=== PATIENT | male | born 1955 | race Hispanic/Latino ===

== ENCOUNTER 2020-04-17 17:25 | Inpatient (IN) | payer BC ==
[~2020-04-17] VITALS: Ht 175.3 cm; Wt 102.1 kg
[~2020-04-17 17:25] MED LIST: ATOR-2 PO; DULA1.5P SQ; LINA5TAB PO; LISI40TA4 PO; METF-527 PO; OMEP40CA13 PO
[2020-04-17] MEDS ORDERED: LACTULOSE 20 GM/30 ML UDCUP PO PRN (19:00)
[2020-04-17] MEDS ORDERED: COMPOUND IV REFRIGERATED 1 EACH IVSOLN MISC PRN (19:00)
[2020-04-17] MEDS ORDERED: ACETAMINOPHEN 325 MG TAB PO PRN ×2 (19:00)
[2020-04-17] MEDS ORDERED: VANCOMYCIN 1GM+NS 250ML 250 ML IV SCH (19:00)
[2020-04-17] MEDS ORDERED: ONDANSETRON HCL 4 MG/2 ML VIAL IV PRN (19:00)
[2020-04-17] MEDS ORDERED: MORPHINE SULFATE 2 MG/ML 1ML SYG IV PRN (19:00)
[2020-04-17] MEDS ORDERED: HYDRALAZINE HCL 20 MG/ML VIAL IV PRN (19:00)
[2020-04-17] MEDS ORDERED: VANCOMYCIN PROTOCOL PER PHARMACY IV SCH (19:00)
[2020-04-17 19:02] LABS: BASOPHILS % (AUTO) 0.5 % (0.0-5.0); EOSINOPHILS % (AUTO) 3.3 % (0.0-8.0); LYMPHOCYTES % (AUTO) 18.7 % (21.0-51.0); MEAN CORPUSCULAR HEMOGLOBIN 29.2 pg (27.0-33.0); MEAN CORPUSCULAR HGB CONC 33.3 g/dL (32.0-36.0); MEAN CORPUSCULAR VOLUME 87.9 fL (79-99); MONOCYTES % (AUTO) 8.9 % (3.0-13.0); NEUTROPHILS % (AUTO) 68.1 % (40.0-77.0); PLATELET COUNT (AUTO) 226 K/uL (130-400); RED BLOOD CELL COUNT(AUTO) 4.55 MIL/uL (4.50-6.20); RED CELL DISTRIBUTION WIDTH 13.2 % (11.0-15.5); WHITE BLOOD COUNT (AUTO) 9.4 K/uL (4.8-10.8)
[2020-04-17 19:04] LABS: CREATININE 1.8 mg/dL (0.5-1.5); POTASSIUM 4.2 mmol/L (3.5-5.1)
[2020-04-17 19:09] LABS: ALBUMIN 3.9 g/dL (3.5-5.0); BILIRUBIN,TOTAL 0.4 mg/dL (0.2-1.0); TOTAL PROTEIN, SERUM 7.8 g/dL (6.0-8.3)
[2020-04-17] MEDS ORDERED: VANCOMYCIN 2 GM in SODIUM CHLORIDE 0.9% 500ML 500 ML IV ONE (19:30)
[2020-04-17] MEDS ORDERED: VANCOMYCIN 1GM+NS 250ML 250 ML IV ONE (19:49)
[2020-04-17] MEDS ORDERED: FAMOTIDINE/PF 20 MG/2 ML VIAL IV ONE (19:51)
[2020-04-17 20:13] LABS: ERYTHROCYTE SEDIMENTATION RATE 18 MM/HR (0-20)
[2020-04-17] MEDS: FAMOTIDINE/PF 20 MG/2 ML VIAL IV SCH (21:00)
[2020-04-17 23:00] VITALS: BP 153/71
--- NOTE | 2020-04-17 23:00 | NUR ---
PATIENT RECEIVED FROM Denzel, REPORT FROM POONAM RAYA. PT SENT TO HOSPITAL FROM DR. LANCASTER'S OFFICE WITH DX OF LEFT 2NF TOE OSTEOMYELITIS. PT ORIENTED TO ROOM AND ENVIRONMENT, POC DISCUSSED WITH PATIENT. PT IS TO BE NPO, NO ORDERS FOR PROCEDURES AT THIS TIME. TELE WITH SR 67 NO C/O PAIN VOICED. INSTRUCTED TO CALL FOR ASSISTANCE IF NEEDED. CALL ORNELAS PLACED WITHIN REACH, WILL CONT TO MONITOR CLOSELY.
[2020-04-18 03:46] VITALS: BP 127/66
[2020-04-18] MEDS: SODIUM CHLORIDE 0.9% 1000ML 1,000 ML IV SCH ×2 (04:15→14:48)
[2020-04-18] MEDS ORDERED: VANCOMYCIN 1GM+NS 250ML 250 ML IV SCH (06:00)
--- NOTE | 2020-04-18 06:36 | NUR ---
MD ROUNDS DR. LANCASTER IN TO SEE PATIENT. MD CHANGED DRESSING TO LEFT 2 ND TOE WOUND. MD SPOKE WITH PATIENT, INFORMED HIM OF PLAN FOR SURGERY TOMORROW.
[2020-04-18 07:30] VITALS: BP 144/72
[2020-04-18 11:00] VITALS: BP 149/70
[2020-04-18] MEDS: VANCOMYCIN 1GM+NS 250ML 250 ML IV SCH ×2 (11:15→21:55)
[2020-04-18] MEDS: FAMOTIDINE/PF 20 MG/2 ML VIAL IV SCH ×2 (11:15→21:54)
--- NOTE | 2020-04-18 12:22 | NUR ---
DCP CM met with pt discussed dc plans. Pt is independent prior to admission, lives at home with spouse. Pt verbalized he has small step in front of house. Pt has a rollator walker, cane, crutches, shower chair. Denies any equipments/services. Feels safe to go back home, still drives, spouse able to assist with transportation and needs as necessary. Pt prefers to go home, but agreeable for short term placemenent verbalized he's ok w/[facility] only if necessary, will sign consent once MD makes recommendations. DC plan to home vs HH/SNF. CM to cont to follow up. Addendum: 04/18/20 at 1226 by GANESH BREEN LVN CM Amended: Links added.
[2020-04-18 16:00] VITALS: BP 147/76
[2020-04-18] MEDS ORDERED: INS7030 SQ (16:30)
[2020-04-18] MEDS ORDERED: NITR0.4T50 SL (16:30)
[2020-04-18] MEDS ORDERED: CLOP75TA32 PO (16:30)
[2020-04-18] MEDS ORDERED: LORA10TA7 PO (16:30)
[2020-04-18] MEDS ORDERED: AMLO2.5T4 PO (16:30)
[2020-04-18] MEDS ORDERED: ASPI-1197 PO (16:30)
--- NOTE | 2020-04-18 18:30 | NUR ---
Covid PCR swab done and given to lab. Dressing change number 1 done and wound cultures were taken; wound kit was and required second dressing change and wound cultures; second dressing change done and wound cultures taken and given to lab.
[2020-04-18 20:00] VITALS: BP 154/75
[2020-04-19] VITALS (22 sets, daily range): BP systolic 98–168; BP diastolic 60–83
[2020-04-19] MEDS: SODIUM CHLORIDE 0.9% 1000ML 1,000 ML IV SCH ×3 (01:07→21:06)
[2020-04-19 06:43] LABS: BASOPHILS % (AUTO) 0.5 % (0.0-5.0); EOSINOPHILS % (AUTO) 4.4 % (0.0-8.0); HEMATOCRIT 36.1 % (42-54); LYMPHOCYTES % (AUTO) 17.7 % (21.0-51.0); MEAN CORPUSCULAR HEMOGLOBIN 29.2 pg (27.0-33.0); MEAN CORPUSCULAR HGB CONC 33.5 g/dL (32.0-36.0); MONOCYTES % (AUTO) 9.5 % (3.0-13.0); NEUTROPHILS % (AUTO) 67.5 % (40.0-77.0); PLATELET COUNT (AUTO) 187 K/uL (130-400); RED BLOOD CELL COUNT(AUTO) 4.15 MIL/uL (4.50-6.20); RED CELL DISTRIBUTION WIDTH 13.1 % (11.0-15.5); WHITE BLOOD COUNT (AUTO) 8.2 K/uL (4.8-10.8)
[2020-04-19 06:55] LABS: CREATININE 1.5 mg/dL (0.5-1.5); POTASSIUM 4.3 mmol/L (3.5-5.1)
[2020-04-19] MEDS ORDERED: BUPIVACAINE/PF 0.5% 30ML VIAL ONE (07:02)
[2020-04-19] MEDS ORDERED: LIDOCAINE HCL 1% 20 ML VIAL ONE (07:02)
[2020-04-19] MEDS ORDERED: MIDAZOLAM HCL 1 MG/ML 2ML VIAL ONE (07:06)
[2020-04-19] MEDS ORDERED: FENTANYL CITRATE PF 50 MCG/1 ML 2ML VIAL ONE (07:06)
[2020-04-19] MEDS ORDERED: PROPOFOL 1000 MG/100 ML 100 ML IV ONE (07:07)
[2020-04-19] MEDS ORDERED: LIDOCAINE PF 2% 5ML ABBOJECT ONE (07:17)
[2020-04-19] MEDS: VANCOMYCIN 1GM+NS 250ML 250 ML IV SCH ×2 (08:58→21:50)
[2020-04-19] MEDS ORDERED: NITROGLYCERIN 0.4 MG SL TAB SL PRN (09:15)
[2020-04-19] MEDS ORDERED: HYDROMORPHONE 1 MG/1 ML AMP IVP PRN (10:15)
[2020-04-19] MEDS: LISINOPRIL 40 MG TABLET PO SCH (13:04)
[2020-04-19] MEDS: ASPIRIN 81MG TAB.CHEW PO SCH (13:04)
[2020-04-19] MEDS: FAMOTIDINE/PF 20 MG/2 ML VIAL IV SCH ×2 (13:05→21:05)
[2020-04-19] MEDS: INSULIN HUMULIN R 100 UNIT/ML 3ML SQ SCH ×3 (13:11→21:00)
[2020-04-19] MEDS: LORATADINE 10 MG TABLET PO SCH (21:05)
[2020-04-19] MEDS: ATORVASTATIN CALCIUM 40 MG TABLET PO SCH (21:05)
[2020-04-20 04:29] VITALS: BP 136/72
[2020-04-20 05:33] LABS: BASOPHILS % (AUTO) 0.3 % (0.0-5.0); EOSINOPHILS % (AUTO) 3.4 % (0.0-8.0); HEMATOCRIT 34.8 % (42-54); LYMPHOCYTES % (AUTO) 15.5 % (21.0-51.0); MEAN CORPUSCULAR HEMOGLOBIN 29.2 pg (27.0-33.0); MEAN CORPUSCULAR HGB CONC 33.3 g/dL (32.0-36.0); MEAN CORPUSCULAR VOLUME 87.7 fL (79-99); MONOCYTES % (AUTO) 9.6 % (3.0-13.0); NEUTROPHILS % (AUTO) 70.8 % (40.0-77.0); PLATELET COUNT (AUTO) 197 K/uL (130-400); RED BLOOD CELL COUNT(AUTO) 3.97 MIL/uL (4.50-6.20); RED CELL DISTRIBUTION WIDTH 13.2 % (11.0-15.5); WHITE BLOOD COUNT (AUTO) 9.7 K/uL (4.8-10.8)
[2020-04-20 05:49] LABS: CREATININE 1.5 mg/dL (0.5-1.5); POTASSIUM 4.4 mmol/L (3.5-5.1)
[2020-04-20] MEDS: INSULIN HUMULIN R 100 UNIT/ML 3ML SQ SCH ×4 (06:45→21:18)
[2020-04-20] MEDS: SODIUM CHLORIDE 0.9% 1000ML 1,000 ML IV SCH (08:00)
[2020-04-20 08:39] VITALS: BP 149/79
[2020-04-20] MEDS: VANCOMYCIN 1GM+NS 250ML 250 ML IV SCH ×2 (09:23→21:10)
[2020-04-20] MEDS: FAMOTIDINE/PF 20 MG/2 ML VIAL IV SCH ×2 (09:23→21:10)
[2020-04-20] MEDS: AMLODIPINE BESYLATE 2.5 MG TAB PO SCH (09:24)
[2020-04-20] MEDS: CLOPIDOGREL BISULFATE 75 MG TAB PO SCH (09:24)
[2020-04-20] MEDS: ASPIRIN 81MG TAB.CHEW PO SCH (09:24)
[2020-04-20] MEDS: LISINOPRIL 40 MG TABLET PO SCH (09:25)
[2020-04-20 12:29] VITALS: BP 139/68
[2020-04-20] MEDS: SODIUM CHLORIDE 0.9% 10 ML VIAL IV SCH ×2 (15:45→23:45)
[2020-04-20 16:47] VITALS: BP 147/71
[2020-04-20 20:00] VITALS: BP 151/79
[2020-04-20] MEDS: LORATADINE 10 MG TABLET PO SCH (21:10)
[2020-04-20] MEDS: ATORVASTATIN CALCIUM 40 MG TABLET PO SCH (21:10)
[2020-04-20 23:44] VITALS: BP 136/59
--- NOTE | 2020-04-21 02:38 | NUR ---
PAIN Pt medicated with Tylenol for c/o of mild pain to left foot.
[2020-04-21 03:45] LABS: BASOPHILS % (AUTO) 0.2 % (0.0-5.0); EOSINOPHILS % (AUTO) 2.8 % (0.0-8.0); HEMATOCRIT 35.2 % (42-54); LYMPHOCYTES % (AUTO) 13.8 % (21.0-51.0); MEAN CORPUSCULAR HEMOGLOBIN 29.5 pg (27.0-33.0); MEAN CORPUSCULAR HGB CONC 33.8 g/dL (32.0-36.0); MEAN CORPUSCULAR VOLUME 87.1 fL (79-99); NEUTROPHILS % (AUTO) 71.7 % (40.0-77.0); PLATELET COUNT (AUTO) 188 K/uL (130-400); RED BLOOD CELL COUNT(AUTO) 4.04 MIL/uL (4.50-6.20); RED CELL DISTRIBUTION WIDTH 13.2 % (11.0-15.5); WHITE BLOOD COUNT (AUTO) 10.2 K/uL (4.8-10.8)
[2020-04-21 03:48] VITALS: BP 138/62
[2020-04-21 04:05] LABS: BILIRUBIN,TOTAL 0.5 mg/dL (0.2-1.0); CREATININE 1.6 mg/dL (0.5-1.5); POTASSIUM 3.8 mmol/L (3.5-5.1); TOTAL PROTEIN, SERUM 6.4 g/dL (6.0-8.3)
[2020-04-21] MEDS: INSULIN HUMULIN R 100 UNIT/ML 3ML SQ SCH ×3 (05:35→16:45)
[2020-04-21] MEDS: SODIUM CHLORIDE 0.9% 10 ML VIAL IV SCH ×2 (07:33→15:45)
[2020-04-21 07:56] VITALS: BP 128/65
[2020-04-21] MEDS: FAMOTIDINE/PF 20 MG/2 ML VIAL IV SCH (09:07)
[2020-04-21] MEDS: VANCOMYCIN 1GM+NS 250ML 250 ML IV SCH (09:07)
[2020-04-21] MEDS: AMLODIPINE BESYLATE 2.5 MG TAB PO SCH (09:08)
[2020-04-21] MEDS: CLOPIDOGREL BISULFATE 75 MG TAB PO SCH (09:08)
[2020-04-21] MEDS: ASPIRIN 81MG TAB.CHEW PO SCH (09:08)
[2020-04-21] MEDS: LISINOPRIL 40 MG TABLET PO SCH (09:09)
[2020-04-21 11:15] VITALS: BP 142/75
[2020-04-21 16:00] VITALS: BP 147/79
--- NOTE | 2020-04-21 18:45 | NUR ---
DISCHARGE DISCHARGE TEACHING REGARDING RX (LEVAQUIN), PENDING F/U APPOINTMENTS NEEDED TO BE SCHEDULED WITH DR. LANCASTER AND DR. NARANJO, AND HOME CARE. REINFORCED TO CONTINUE PHYSICAL THERAPIST TEACHING REGARDING HOW TO AMBULATE HEEL-WALKER WITH SURGICAL SHOE TO LEFT FOOT WITH WALKER. PATIENT STATES HE HAS A WALKER AT HOME. PATIENTS , HERNESTO MUNOZ, CURRENTLY AT BEDSIDE. PROVIDED TEACHING TO PATIENTS REGARDING LEFT FOOT SECOND TOE INCISION DRESSING CHANGES PER DR. LANCASTER ORDER (BETADINE CASE, 4X4 GAUZE, AND KERLIX). PATIENTS STATED SHE HAS DONE THE SAME TYPE WOUND DRESSING CHANGES BEFORE AND FELT COMFORTABLE PERFORMING DRESSING CHANGES AT HOME. PATIENT AND VERBALIZED UNDERSTANDING OF DISCHARGE TEACHING. PROVIDED WOUND DRESSING SUPPLIES (BETADINE, 4X4 GAUZE, AND KERLIX ROLLS) TO PATIENT AT TIME OF DISCHARGE. REMOVED 20G IV FROM RIGHT HAND, CATHETER TIP INTACT.
== END 2020-04-21 18:58 | disposition home or self-care (01) | DRG 617 ==
LOC: EDH 17:25 → EDHIP 17:26 → 3AH 22:07
PROVIDERS: ADMIT Internal Medicine; ATTEND Internal Medicine
PROC: 0Y6N0ZB Detachment at Left Foot, Partial 2nd Ray, Open Approach (ICD-10-PCS; principal; 2020-04-19 07:54)
DX: E11.69 Type 2 diabetes mellitus with other specified complication (principal); M86.8X7 Other osteomyelitis, ankle and foot; L03.116 Cellulitis of left lower limb; L02.612 Cutaneous abscess of left foot; E11.621 Type 2 diabetes mellitus with foot ulcer; N17.9 Acute kidney failure, unspecified; I25.10 Atherosclerotic heart disease of native coronary artery without angina pectoris; Z20.828 Contact with and (suspected) exposure to other viral communicable diseases; I10 Essential (primary) hypertension; E11.51 Type 2 diabetes mellitus with diabetic peripheral angiopathy without gangrene; L97.529 Non-pressure chronic ulcer of other part of left foot with unspecified severity; B96.5 Pseudomonas (aeruginosa) (mallei) (pseudomallei) as the cause of diseases classified elsewhere; E78.5 Hyperlipidemia, unspecified; E66.9 Obesity, unspecified; Z68.33 Body mass index [BMI] 33.0-33.9, adult; Z89.421 Acquired absence of other right toe(s); Z95.5 Presence of coronary angioplasty implant and graft; Z89.412 Acquired absence of left great toe; Z83.3 Family history of diabetes mellitus; Z82.5 Family history of asthma and other chronic lower respiratory diseases; Z82.0 Family history of epilepsy and other diseases of the nervous system; Z82.49 Family history of ischemic heart disease and other diseases of the circulatory system
CPT/HCPCS: 36415; 73630; 73718; 80048; 80053; 80202; 82948; 85025; 85651; 87070; 87076; 87077; 87186; 87205; 87426; 93925; 93970; 97039; G0378; J1815; J2001; J2250; J2704; J3010; J3370; J3490; J7030; J7040; U0003

== ENCOUNTER 2020-05-28 14:23 | Inpatient (IN) | payer BC ==
[~2020-05-28] VITALS: Ht 175.3 cm; Wt 102.6 kg
[~2020-05-28 14:23] MED LIST changes: +AMLO2.5T4 PO; +ASPI-1197 PO; +CLOP75TA32 PO; -DULA1.5P SQ; +INS7030 SQ; +LORA10TA7 PO; +NITR0.4T50 SL
[2020-05-28] MEDS ORDERED: VANCOMYCIN 1GM+NS 250ML 250 ML IV ONE (17:44)
[2020-05-28] MEDS ORDERED: MORPHINE SULFATE 2 MG/ML 1ML SYG IVP PRN (17:45)
[2020-05-28] MEDS ORDERED: VANCOMYCIN PROTOCOL PER PHARMACY IV SCH (17:45)
[2020-05-28] MEDS ORDERED: HYDROMORPHONE 1 MG/1 ML AMP IVP PRN (17:45)
[2020-05-28] MEDS ORDERED: ACETAMINOPHEN 325 MG TAB PO PRN (17:45)
[2020-05-28] MEDS ORDERED: ONDANSETRON HCL 4 MG/2 ML VIAL IVP PRN (17:45)
[2020-05-28] MEDS: ZOSYN 3.375GM+NS 50ML 50 ML IV SCH (18:00)
[2020-05-28 18:04] LABS: BASOPHILS % (AUTO) 0.3 % (0.0-5.0); EOSINOPHILS % (AUTO) 3.4 % (0.0-8.0); HEMATOCRIT 36.2 % (42-54); LYMPHOCYTES % (AUTO) 12.9 % (21.0-51.0); MEAN CORPUSCULAR HEMOGLOBIN 28.6 pg (27.0-33.0); MEAN CORPUSCULAR HGB CONC 33.1 g/dL (32.0-36.0); MEAN CORPUSCULAR VOLUME 86.2 fL (79-99); PLATELET COUNT (AUTO) 245 K/uL (130-400); WHITE BLOOD COUNT (AUTO) 11.6 K/uL (4.8-10.8)
[2020-05-28] MEDS ORDERED: ENOXAPARIN SODIUM 30 MG/0.3 ML SQ ONE (18:16)
[2020-05-28 18:27] LABS: ALANINE AMINOTRANSFERASE 12 U/L (12-78); ALBUMIN 3.3 g/dL (3.5-5.0); ASPARTATE AMINOTRANSFERASE 13 U/L (10-37); BILIRUBIN,TOTAL 0.3 mg/dL (0.2-1.0); CARBON DIOXIDE 26 mmol/L (21-32); CHLORIDE 100 mmol/L (101-111); CREATININE 1.7 mg/dL (0.5-1.5); GLOMERULAR FILTR. RATE CALC 43 mL/min (>60); GLUCOSE,RANDOM 214 mg/dL (70-105); POTASSIUM 4.2 mmol/L (3.5-5.1); SODIUM SERUM 135 mmol/L (136-145); TOTAL PROTEIN, SERUM 7.4 g/dL (6.0-8.3); UREA NITROGEN, BLOOD 22 mg/dL (7-18)
[2020-05-28] MEDS ORDERED: PHARMACY COMMUNICATION MISC SCH (18:30)
[2020-05-28] MEDS ORDERED: ZOSYN 3.375GM+NS 50ML 50 ML IV ONE (20:25)
[2020-05-28] MEDS ORDERED: FAMOTIDINE 20MG TAB 20 MG TAB ONE (20:25)
[2020-05-28] MEDS: VANCOMYCIN 500MG+NS 100ML 100 ML IV SCH (21:00)
[2020-05-28 23:50] VITALS: BP 146/73
[2020-05-29] MEDS ORDERED: AMOX500C2 PO (00:20)
[2020-05-29] MEDS: ZOSYN 3.375GM+NS 50ML 50 ML IV SCH ×3 (02:45→17:38)
[2020-05-29 03:31] VITALS: BP 135/63
[2020-05-29 04:10] LABS: BASOPHILS % (AUTO) 0.3 % (0.0-5.0); EOSINOPHILS % (AUTO) 3.3 % (0.0-8.0); HEMATOCRIT 30.9 % (42-54); LYMPHOCYTES % (AUTO) 15.6 % (21.0-51.0); MEAN CORPUSCULAR HEMOGLOBIN 29.1 pg (27.0-33.0); MEAN CORPUSCULAR HGB CONC 33.7 g/dL (32.0-36.0); MEAN CORPUSCULAR VOLUME 86.3 fL (79-99); MONOCYTES % (AUTO) 10.6 % (3.0-13.0); NEUTROPHILS % (AUTO) 69.6 % (40.0-77.0); PLATELET COUNT (AUTO) 209 K/uL (130-400); RED BLOOD CELL COUNT(AUTO) 3.58 MIL/uL (4.50-6.20); WHITE BLOOD COUNT (AUTO) 9.9 K/uL (4.8-10.8)
[2020-05-29 04:28] LABS: ALBUMIN 2.7 g/dL (3.5-5.0); BILIRUBIN,TOTAL 0.4 mg/dL (0.2-1.0); CREATININE 1.5 mg/dL (0.5-1.5); TOTAL PROTEIN, SERUM 6.2 g/dL (6.0-8.3)
[2020-05-29 08:43] VITALS: BP 132/68
[2020-05-29] MEDS: LISINOPRIL 40 MG TABLET PO SCH (09:38)
[2020-05-29] MEDS: FAMOTIDINE 20MG TAB 20 MG TAB PO SCH (09:38)
[2020-05-29] MEDS: ASPIRIN 81MG TAB.CHEW PO SCH (09:38)
[2020-05-29] MEDS: CLOPIDOGREL BISULFATE 75 MG TAB PO SCH (09:39)
[2020-05-29] MEDS: VANCOMYCIN 500MG+NS 100ML 100 ML IV SCH ×2 (09:39→20:46)
[2020-05-29] MEDS: AMLODIPINE BESYLATE 2.5 MG TAB PO SCH (09:39)
[2020-05-29] MEDS: ENOXAPARIN SODIUM 30 MG/0.3 ML SQ SCH (09:40)
[2020-05-29] MEDS: PANTOPRAZOLE SODIUM 40 MG TABLET.DR PO SCH (09:43)
[2020-05-29 11:51] VITALS: BP 142/67
--- NOTE | 2020-05-29 14:08 | NUR ---
SPOKE WITH PATIENT AT BEDSIDE FOR DC PLANNING SUZY STATES LIVES WITH [employer] [employer] WHO WILL PROVIDE TRANSPORT HOME. STATS INDEPENDENT, DRIVES, HAS NO DME,; WAS TOLD HE MIGHT NEED CPAPA BUT HAS NOT DONE TESTING . SEES HIS PMD EVERY 2 MONTHS HAS BEEN DIABETIC SINCE 1994. HERE FOR INFECTION TO FOOT. MAY NEED IV ABX AT DISCHARGE MAY NEED AMPUTATION. CM TO FOLLOW. LIVES ON [facility]. MAY BE A LOGISTICAL PROBLEM FOR DC PLANNING, BUT CM TO FOLLOW Addendum: 05/30/20 at 1411 by KELSIE ALVAREZ RN CM Amended: Links added.
[2020-05-29 17:16] VITALS: BP 150/77
[2020-05-29 20:00] VITALS: BP 146/70
[2020-05-29] MEDS: ATORVASTATIN CALCIUM 40 MG TABLET PO SCH (20:46)
--- NOTE | 2020-05-29 20:50 | NUR ---
MEDS SHIFT ASSESSMENT DONE, PLEASE REFER TO CHART. DUE MEDS ADMINISTERED, TOLERATED WELL. CALL LIGHT WITHIN REACH. WILL MONITOR PT. Addendum: 05/30/20 at 0324 by RUBIO MILLER RN RN Amended: Links added.
[2020-05-30] VITALS (7 sets, daily range): BP systolic 133–160; BP diastolic 66–80
[2020-05-30] MEDS: ZOSYN 3.375GM+NS 50ML 50 ML IV SCH ×3 (01:23→17:56)
--- NOTE | 2020-05-30 02:00 | NUR ---
ROUNDS PT RESTING WELL, FAIRLY ASLEEP. NO DISTRESS NOTED. KEPT RESTED AND COMFORTABLE. CALL LIGHT WITHIN REACH. WILL MONITOR PT.
[2020-05-30 04:09] LABS: CREATININE 1.7 mg/dL (0.5-1.5); POTASSIUM 4.1 mmol/L (3.5-5.1)
[2020-05-30] MEDS: PANTOPRAZOLE SODIUM 40 MG TABLET.DR PO SCH (05:43)
--- NOTE | 2020-05-30 06:26 | NUR ---
MD DR LANCASTER IN TO SEE PT. DRESSING CHANGED DONE ON RIGHT FOOT. MD STATED TO FEED PT AND PLAN FOR SX TOMORROW. FURTHER STATED THAT HE WILL PLACED THE ORDERS IN AND WILL COME BACK THIS PM TO ASK FINAL DECISION OF PT FOR SX. PLEASE REFER TO CPOE.
[2020-05-30] MEDS: INSULIN HUMULIN R 100 UNIT/ML 3ML SQ SCH ×4 (06:31→21:04)
[2020-05-30] MEDS: ASPIRIN 81MG TAB.CHEW PO SCH (09:29)
[2020-05-30] MEDS: LISINOPRIL 40 MG TABLET PO SCH (09:29)
[2020-05-30] MEDS: AMLODIPINE BESYLATE 2.5 MG TAB PO SCH (09:29)
[2020-05-30] MEDS: ENOXAPARIN SODIUM 30 MG/0.3 ML SQ SCH ×2 (09:30→19:00)
[2020-05-30] MEDS: CLOPIDOGREL BISULFATE 75 MG TAB PO SCH (09:30)
[2020-05-30] MEDS: FAMOTIDINE 20MG TAB 20 MG TAB PO SCH (09:30)
[2020-05-30] MEDS: VANCOMYCIN 500MG+NS 100ML 100 ML IV SCH (10:08)
[2020-05-30] MEDS ORDERED: COMPOUND IV REFRIGERATED 1 EACH IVSOLN MISC PRN (13:15)
[2020-05-30] MEDS ORDERED: VANCOMYCIN 1GM+NS 250ML 250 ML IV ONE (19:03)
--- NOTE | 2020-05-30 19:40 | NUR ---
DOCTOR TONNY PRESENT AT THE BEDSIDE. HE SPOKE WITH THE PATIENT ABOUT THE PROCEDURE TOMORROW AND LET ME KNOW THAT IT WILL BE AT 07:30 AM.
[2020-05-30] MEDS: ATORVASTATIN CALCIUM 40 MG TABLET PO SCH (20:11)
[2020-05-30] MEDS ORDERED: VANCOMYCIN 1GM+NS 250ML 250 ML IV SCH (21:00)
[2020-05-31] VITALS (19 sets, daily range): BP systolic 122–159; BP diastolic 63–82
[2020-05-31] MEDS: ZOSYN 3.375GM+NS 50ML 50 ML IV SCH ×3 (01:28→18:13)
[2020-05-31] MEDS: PANTOPRAZOLE SODIUM 40 MG TABLET.DR PO SCH (05:27)
[2020-05-31] MEDS: INSULIN HUMULIN R 100 UNIT/ML 3ML SQ SCH ×4 (05:30→21:30)
[2020-05-31] MEDS ORDERED: BUPIVACAINE/PF 0.5% 30ML VIAL ONE (07:28)
[2020-05-31] MEDS ORDERED: LIDOCAINE HCL 1% 20 ML VIAL ONE (07:28)
[2020-05-31] MEDS ORDERED: MIDAZOLAM HCL 1 MG/ML 2ML VIAL ONE ×2 (07:39→08:19)
[2020-05-31] MEDS ORDERED: FENTANYL CITRATE PF 50 MCG/1 ML 2ML VIAL ONE (07:40)
[2020-05-31] MEDS ORDERED: VANCOMYCIN 750MG + NS 250 ML IV SCH ×2 (09:00)
[2020-05-31] MEDS: LISINOPRIL 40 MG TABLET PO SCH (10:26)
[2020-05-31] MEDS: CLOPIDOGREL BISULFATE 75 MG TAB PO SCH (10:26)
[2020-05-31] MEDS: FAMOTIDINE 20MG TAB 20 MG TAB PO SCH (10:27)
[2020-05-31] MEDS: AMLODIPINE BESYLATE 2.5 MG TAB PO SCH (10:27)
[2020-05-31] MEDS: ASPIRIN 81MG TAB.CHEW PO SCH (10:27)
[2020-05-31] MEDS ORDERED: HYDROMORPHONE HCL 2 MG/ML VIAL IVP PRN (14:15)
[2020-05-31] MEDS ORDERED: MORPHINE SULFATE 2 MG/ML 1ML SYG IVP PRN (14:15)
[2020-05-31] MEDS: ATORVASTATIN CALCIUM 40 MG TABLET PO SCH (21:29)
[2020-06-01] MEDS: ZOSYN 3.375GM+NS 50ML 50 ML IV SCH ×3 (02:27→17:21)
[2020-06-01 04:18] VITALS: BP 153/67
[2020-06-01] MEDS: INSULIN HUMULIN R 100 UNIT/ML 3ML SQ SCH ×4 (06:12→20:15)
[2020-06-01 06:18] LABS: BASOPHILS % (AUTO) 0.4 % (0.0-5.0); EOSINOPHILS % (AUTO) 2.4 % (0.0-8.0); HEMATOCRIT 32.9 % (42-54); LYMPHOCYTES % (AUTO) 12.5 % (21.0-51.0); MEAN CORPUSCULAR HEMOGLOBIN 27.9 pg (27.0-33.0); MEAN CORPUSCULAR HGB CONC 32.8 g/dL (32.0-36.0); MONOCYTES % (AUTO) 9.6 % (3.0-13.0); NEUTROPHILS % (AUTO) 74.5 % (40.0-77.0); PLATELET COUNT (AUTO) 282 K/uL (130-400); RED BLOOD CELL COUNT(AUTO) 3.87 MIL/uL (4.50-6.20); RED CELL DISTRIBUTION WIDTH 12.7 % (11.0-15.5); WHITE BLOOD COUNT (AUTO) 10.6 K/uL (4.8-10.8)
[2020-06-01] MEDS: PANTOPRAZOLE SODIUM 40 MG TABLET.DR PO SCH (06:23)
[2020-06-01 06:56] LABS: CREATININE 1.5 mg/dL (0.5-1.5)
[2020-06-01 08:00] VITALS: BP 139/65
--- NOTE | 2020-06-01 08:00 | NUR ---
AM SHIFT ASSESSMENT. DRESSING LT. SURGICAL FOOT CHANGED THIS AM BY DR. LANCASTER, REPORTS NO PAIN AT THIS TIME.
[2020-06-01] MEDS ORDERED: HYDROCORTISONE 1% 28.35 GM CREAM TP SCH (09:30)
[2020-06-01] MEDS: ASPIRIN 81MG TAB.CHEW PO SCH (09:48)
[2020-06-01] MEDS: LISINOPRIL 40 MG TABLET PO SCH (09:48)
[2020-06-01] MEDS: FAMOTIDINE 20MG TAB 20 MG TAB PO SCH (09:48)
[2020-06-01] MEDS: AMLODIPINE BESYLATE 2.5 MG TAB PO SCH (09:49)
[2020-06-01] MEDS: CLOPIDOGREL BISULFATE 75 MG TAB PO SCH (09:49)
[2020-06-01] MEDS: ENOXAPARIN SODIUM 30 MG/0.3 ML SQ SCH (09:50)
[2020-06-01 11:00] VITALS: BP 139/67
--- NOTE | 2020-06-01 11:30 | NUR ---
OUT OF BED WITH PHYSICAL THERAPY, AND NOW SITTING IN CHAIR FOR LUNCH. LT. FOOT ELEVATED ON A STOOL.
[2020-06-01] MEDS: HYDROCODONE/ACETAMINOPHEN 5/325 MG TAB PO PRN ×3 (12:03→23:48)
[2020-06-01 16:00] VITALS: BP 150/69
--- NOTE | 2020-06-01 17:40 | NUR ---
SOME DISCOMFORT TO LT. FOOT, MEDICATED NOW.
[2020-06-01 19:53] VITALS: BP 145/73
[2020-06-01] MEDS: ATORVASTATIN CALCIUM 40 MG TABLET PO SCH (20:14)
[2020-06-01 23:20] VITALS: BP 159/73
[2020-06-02] MEDS: ZOSYN 3.375GM+NS 50ML 50 ML IV SCH ×3 (01:49→18:10)
[2020-06-02 04:09] VITALS: BP 137/68
[2020-06-02 06:05] LABS: BASOPHILS % (AUTO) 0.4 % (0.0-5.0); EOSINOPHILS % (AUTO) 3.5 % (0.0-8.0); HEMATOCRIT 31.8 % (42-54); LYMPHOCYTES % (AUTO) 14.7 % (21.0-51.0); MEAN CORPUSCULAR HEMOGLOBIN 27.9 pg (27.0-33.0); MEAN CORPUSCULAR HGB CONC 32.7 g/dL (32.0-36.0); MEAN CORPUSCULAR VOLUME 85.3 fL (79-99); MONOCYTES % (AUTO) 8.9 % (3.0-13.0); NEUTROPHILS % (AUTO) 72.1 % (40.0-77.0); PLATELET COUNT (AUTO) 270 K/uL (130-400); RED BLOOD CELL COUNT(AUTO) 3.73 MIL/uL (4.50-6.20); RED CELL DISTRIBUTION WIDTH 12.8 % (11.0-15.5); WHITE BLOOD COUNT (AUTO) 11.2 K/uL (4.8-10.8)
[2020-06-02 06:22] LABS: CREATININE 1.5 mg/dL (0.5-1.5)
[2020-06-02] MEDS: PANTOPRAZOLE SODIUM 40 MG TABLET.DR PO SCH (06:39)
[2020-06-02] MEDS: INSULIN HUMULIN R 100 UNIT/ML 3ML SQ SCH ×4 (06:41→21:28)
[2020-06-02 08:00] VITALS: BP 134/57
[2020-06-02] MEDS: HYDROCODONE/ACETAMINOPHEN 5/325 MG TAB PO PRN (08:20)
[2020-06-02] MEDS: POLYETHYLENE GLYCOL 3350 17 GM POWD.PACK PO SCH (08:20)
[2020-06-02] MEDS: FAMOTIDINE 20MG TAB 20 MG TAB PO SCH (08:21)
[2020-06-02] MEDS: CLOPIDOGREL BISULFATE 75 MG TAB PO SCH (08:21)
[2020-06-02] MEDS: LISINOPRIL 40 MG TABLET PO SCH (08:21)
[2020-06-02] MEDS: ASPIRIN 81MG TAB.CHEW PO SCH (08:21)
[2020-06-02] MEDS: AMLODIPINE BESYLATE 2.5 MG TAB PO SCH (08:21)
[2020-06-02] MEDS: ENOXAPARIN SODIUM 30 MG/0.3 ML SQ SCH (08:22)
[2020-06-02 11:00] VITALS: BP 133/68
--- NOTE | 2020-06-02 14:10 | NUR ---
DR. LANCASTER SPOKE TO MD VIA TELEPHONE REGARDING DISCHARGE PLANNING. MD REPLIED HE HAS TO REMOVE KEVIN DRAIN FROM LEFT FOOT SO DISCHARGE PLAN FOR TOMORROW 06/03/[address] LANCASTER'S STANDPOINT[address] HOSPITALIST DR. ISLAS AND PATIENT INFORMED OF THIS.
[2020-06-02 17:18] VITALS: BP 138/70
[2020-06-02 20:00] VITALS: BP 157/69
[2020-06-02] MEDS: ATORVASTATIN CALCIUM 40 MG TABLET PO SCH (21:24)
[2020-06-03] MEDS: ZOSYN 3.375GM+NS 50ML 50 ML IV SCH ×2 (03:10→09:43)
[2020-06-03] MEDS: HYDROCODONE/ACETAMINOPHEN 5/325 MG TAB PO PRN ×2 (03:16→09:43)
[2020-06-03 04:00] VITALS: BP 127/64
[2020-06-03 07:30] VITALS: BP 134/64
[2020-06-03] MEDS: INSULIN HUMULIN R 100 UNIT/ML 3ML SQ SCH (07:30)
[2020-06-03 08:39] LABS: CREATININE 1.7 mg/dL (0.5-1.5); MAGNESIUM 1.8 mg/dL (1.80-2.40); POTASSIUM 4.4 mmol/L (3.5-5.1)
[2020-06-03] MEDS: PANTOPRAZOLE SODIUM 40 MG TABLET.DR PO SCH (09:39)
[2020-06-03] MEDS: ASPIRIN 81MG TAB.CHEW PO SCH (09:39)
[2020-06-03] MEDS: POLYETHYLENE GLYCOL 3350 17 GM POWD.PACK PO SCH (09:40)
[2020-06-03] MEDS: AMLODIPINE BESYLATE 2.5 MG TAB PO SCH (09:40)
[2020-06-03] MEDS: FAMOTIDINE 20MG TAB 20 MG TAB PO SCH (09:41)
[2020-06-03] MEDS: CLOPIDOGREL BISULFATE 75 MG TAB PO SCH (09:41)
[2020-06-03] MEDS: ENOXAPARIN SODIUM 30 MG/0.3 ML SQ SCH (09:42)
[2020-06-03] MEDS: LISINOPRIL 40 MG TABLET PO SCH (09:42)
[2020-06-03 11:00] VITALS: BP 155/72
== END 2020-06-03 13:30 | disposition home or self-care (01) | DRG 475 ==
LOC: EDH 14:23 → EDHIP 18:18 → 3BH 23:20
PROVIDERS: ADMIT Hospitalist; ATTEND Hospitalist
PROC: 0Y6N0ZB Detachment at Left Foot, Partial 2nd Ray, Open Approach (ICD-10-PCS; 2020-05-31)
PROC: 0Y6N0ZC Detachment at Left Foot, Partial 3rd Ray, Open Approach (ICD-10-PCS; 2020-05-31)
PROC: 0Y6N0ZD Detachment at Left Foot, Partial 4th Ray, Open Approach (ICD-10-PCS; 2020-05-31)
PROC: 0Y6N0ZF Detachment at Left Foot, Partial 5th Ray, Open Approach (ICD-10-PCS; 2020-05-31)
PROC: 0Y6N0Z9 Detachment at Left Foot, Partial 1st Ray, Open Approach (ICD-10-PCS; principal; 2020-05-31 07:44)
DX: T87.44 Infection of amputation stump, left lower extremity (principal); E87.1 Hypo-osmolality and hyponatremia; M86.8X7 Other osteomyelitis, ankle and foot; L02.612 Cutaneous abscess of left foot; L03.90 Cellulitis, unspecified; E11.69 Type 2 diabetes mellitus with other specified complication; E11.621 Type 2 diabetes mellitus with foot ulcer; Y83.5 Amputation of limb(s) as the cause of abnormal reaction of the patient, or of later complication, without mention of misadventure at the time of the procedure; Y92.89 Other specified places as the place of occurrence of the external cause; B96.5 Pseudomonas (aeruginosa) (mallei) (pseudomallei) as the cause of diseases classified elsewhere; E11.22 Type 2 diabetes mellitus with diabetic chronic kidney disease; E11.51 Type 2 diabetes mellitus with diabetic peripheral angiopathy without gangrene; E66.9 Obesity, unspecified; E78.5 Hyperlipidemia, unspecified; I12.9 Hypertensive chronic kidney disease with stage 1 through stage 4 chronic kidney disease, or unspecified chronic kidney disease; I25.10 Atherosclerotic heart disease of native coronary artery without angina pectoris; L97.519 Non-pressure chronic ulcer of other part of right foot with unspecified severity; L97.529 Non-pressure chronic ulcer of other part of left foot with unspecified severity; N18.30 Chronic kidney disease, stage 3 unspecified; Z82.49 Family history of ischemic heart disease and other diseases of the circulatory system; Z82.5 Family history of asthma and other chronic lower respiratory diseases; Z83.3 Family history of diabetes mellitus; Z89.412 Acquired absence of left great toe; Z89.421 Acquired absence of other right toe(s); Z68.33 Body mass index [BMI] 33.0-33.9, adult
CPT/HCPCS: 36415; 73630; 73718; 80048; 80053; 80202; 82948; 83036; 83605; 83735; 84145; 85025; 85651; 86140; 87040; 87070; 87076; 87077; 87186; 87205; 93925; 93971; 97039; G0378; J1170; J1650; J1815; J2250; J2543; J3010; J3370; J3490; J7030; J7050; L3260

== ENCOUNTER 2020-09-25 17:36 | Inpatient (IN) | payer BC, MEDICARE ==
[~2020-09-25] VITALS: Ht 175.3 cm; Wt 103.4 kg
[~2020-09-25 17:36] MED LIST changes: -LISI40TA4 PO; +LISI40TA9 PO; -METF-527 PO
[2020-09-25] MEDS ORDERED: CEFEPIME HCL 1 GM VIAL IVP SCH (18:00)
[2020-09-25] MEDS ORDERED: ZOSYN 3.375GM+NS 50ML 50 ML IV ONE (18:12)
[2020-09-25] MEDS ORDERED: ACETAMINOPHEN-CODEINE 300/30MG TAB ONE (18:13)
[2020-09-25 18:16] LABS: BASOPHILS % (AUTO) 0.7 % (0.0-5.0); EOSINOPHILS % (AUTO) 4.3 % (0.0-8.0); HEMATOCRIT 41.7 % (42-54); MEAN CORPUSCULAR HGB CONC 32.6 g/dL (32.0-36.0); MEAN CORPUSCULAR VOLUME 82.9 fL (79-99); MONOCYTES % (AUTO) 8.6 % (3.0-13.0); NEUTROPHILS % (AUTO) 68.2 % (40.0-77.0); PLATELET COUNT (AUTO) 222 K/uL (130-400); RED BLOOD CELL COUNT(AUTO) 5.03 MIL/uL (4.50-6.20); RED CELL DISTRIBUTION WIDTH 13.8 % (11.0-15.5); WHITE BLOOD COUNT (AUTO) 8.4 K/uL (4.8-10.8)
[2020-09-25 18:31] LABS: POTASSIUM 4.3 mmol/L (3.5-5.1)
[2020-09-25] MEDS ORDERED: VANCOMYCIN 2 GM in SODIUM CHLORIDE 0.9% 500ML 500 ML IV ONE (18:45)
[2020-09-25] MEDS ORDERED: VANCOMYCIN PROTOCOL PER PHARMACY IV SCH (18:45)
[2020-09-25] MEDS ORDERED: COMPOUND IV REFRIGERATED 1 EACH IVSOLN MISC PRN (18:45)
[2020-09-25] MEDS ORDERED: DEXTROSE 50%-WATER 50 ML DISP.SYRIN IV PRN (19:00)
[2020-09-25] MEDS ORDERED: MORPHINE SULFATE 2 MG/ML 1ML SYG IVP PRN (19:00)
[2020-09-25] MEDS ORDERED: ACETAMINOPHEN 325 MG TAB PO PRN (19:00)
[2020-09-25] MEDS ORDERED: GLUCAGON 1MG KIT 1 MG ML IM PRN (19:00)
[2020-09-25] MEDS: ENOXAPARIN SODIUM 30 MG/0.3 ML SQ SCH (21:00)
[2020-09-25] MEDS ORDERED: INSULIN HUMULIN R 100 UNIT/ML 3ML ONE (21:19)
[2020-09-26] MEDS ORDERED: CEFEPIME HCL 1 GM VIAL ONE ×3 (00:11→17:47)
[2020-09-26] MEDS ORDERED: SODIUM CHLORIDE 0.9% 100 ML IV ONE (00:11)
[2020-09-26] MEDS: CEFEPIME HCL 1 GM VIAL IVP SCH ×2 (06:00→18:00)
[2020-09-26] MEDS: VANCOMYCIN 500MG+NS 100ML 100 ML IV SCH ×2 (06:00→18:00)
[2020-09-26 07:04] LABS: BASOPHILS % (AUTO) 0.5 % (0.0-5.0); EOSINOPHILS % (AUTO) 3.7 % (0.0-8.0); HEMATOCRIT 39.5 % (42-54); MEAN CORPUSCULAR HEMOGLOBIN 26.7 pg (27.0-33.0); MEAN CORPUSCULAR HGB CONC 32.2 g/dL (32.0-36.0); MONOCYTES % (AUTO) 7.4 % (3.0-13.0); NEUTROPHILS % (AUTO) 72.1 % (40.0-77.0); PLATELET COUNT (AUTO) 225 K/uL (130-400); RED BLOOD CELL COUNT(AUTO) 4.76 MIL/uL (4.50-6.20); RED CELL DISTRIBUTION WIDTH 14.1 % (11.0-15.5)
[2020-09-26 07:13] LABS: CREATININE 1.7 mg/dL (0.5-1.5); POTASSIUM 3.9 mmol/L (3.5-5.1)
[2020-09-26 07:30] LABS: HEMOGLOBIN A1C 11.7 % (4.0-6.0)
[2020-09-26] MEDS: INSULIN R PO SS1 SQ SCH ×5 (07:30→22:18)
[2020-09-26] MEDS ORDERED: ENOXAPARIN SODIUM 40 MG/0.4 ML SYRINGE SQ ONE (07:44)
[2020-09-26] MEDS ORDERED: SODIUM CHLORIDE 0.9% 50 ML IV ONE ×2 (07:44→17:47)
[2020-09-26] MEDS ORDERED: INSULIN HUMULIN R 100 UNIT/ML 3ML ONE ×2 (18:11→21:23)
[2020-09-26] MEDS: ENOXAPARIN SODIUM 30 MG/0.3 ML SQ SCH (21:00)
[2020-09-26 21:30] VITALS: BP 184/87
[2020-09-27] VITALS (29 sets, daily range): BP systolic 72–178; BP diastolic 6–85
[2020-09-27] MEDS: CEFEPIME HCL 1 GM VIAL IVP SCH ×2 (05:32→17:25)
[2020-09-27] MEDS: INSULIN R PO SS1 SQ SCH ×4 (07:02→20:13)
[2020-09-27] MEDS ORDERED: BUPIVACAINE/PF 0.5% 30ML VIAL ONE (15:10)
[2020-09-27] MEDS ORDERED: LIDOCAINE HCL 1% 20 ML VIAL ONE (15:10)
[2020-09-27] MEDS ORDERED: KETAMINE HCL 100 MG/ML 5ML VIAL IJ ONE (15:17)
[2020-09-27] MEDS ORDERED: PROPOFOL 1000 MG/100 ML 100 ML IV ONE (15:17)
[2020-09-27] MEDS ORDERED: MIDAZOLAM HCL 1 MG/ML 2ML VIAL ONE (15:23)
[2020-09-27] MEDS ORDERED: VANCOMYCIN HCL 1 GM VIAL ONE (17:12)
[2020-09-27] MEDS: VANCOMYCIN 750MG + NS 250 ML IV SCH ×2 (17:26)
[2020-09-27] MEDS ORDERED: HYDRALAZINE HCL 20 MG/ML VIAL ONE (17:47)
[2020-09-27] MEDS ORDERED: HYDROMORPHONE 1 MG/1 ML AMP IVP PRN (19:15)
[2020-09-27] MEDS ORDERED: MORPHINE SULFATE 2 MG/ML 1ML SYG IVP PRN (19:15)
[2020-09-27] MEDS: ENOXAPARIN SODIUM 30 MG/0.3 ML SQ SCH (21:00)
[2020-09-28 03:31] VITALS: BP 154/77
[2020-09-28] MEDS: CEFEPIME HCL 1 GM VIAL IVP SCH ×2 (05:36→18:13)
[2020-09-28] MEDS: VANCOMYCIN 750MG + NS 250 ML IV SCH ×4 (06:00→18:14)
[2020-09-28 06:02] LABS: CREATININE 1.6 mg/dL (0.5-1.5); PHOSPHORUS 2.7 mg/dL (2.5-4.9); POTASSIUM 4.3 mmol/L (3.5-5.1)
[2020-09-28] MEDS: INSULIN R PO SS1 SQ SCH ×4 (06:21→20:37)
[2020-09-28 08:00] VITALS: BP 148/75
[2020-09-28 11:00] VITALS: BP 145/71
[2020-09-28 16:43] VITALS: BP 150/74
[2020-09-28] MEDS: ENOXAPARIN SODIUM 30 MG/0.3 ML SQ SCH (20:38)
[2020-09-28 20:42] VITALS: BP 166/77
[2020-09-29] VITALS (7 sets, daily range): BP systolic 141–158; BP diastolic 70–75
[2020-09-29] MEDS: INSULIN R PO SS1 SQ SCH ×4 (05:48→20:39)
[2020-09-29] MEDS: CEFEPIME HCL 1 GM VIAL IVP SCH ×2 (06:13→17:24)
[2020-09-29] MEDS: VANCOMYCIN 750MG + NS 250 ML IV SCH ×4 (06:32→17:25)
[2020-09-29] MEDS: ENOXAPARIN SODIUM 30 MG/0.3 ML SQ SCH (19:54)
[2020-09-29] MEDS ORDERED: INSU100I24 SQ (22:52)
[2020-09-30 03:30] VITALS: BP 153/72
[2020-09-30] MEDS: CEFEPIME HCL 1 GM VIAL IVP SCH (06:16)
[2020-09-30] MEDS: VANCOMYCIN 750MG + NS 250 ML IV SCH ×2 (06:16)
[2020-09-30] MEDS: INSULIN R PO SS1 SQ SCH ×3 (06:26→18:28)
[2020-09-30 08:27] VITALS: BP 163/82
[2020-09-30 12:23] VITALS: BP 150/69
[2020-09-30 16:44] VITALS: BP 116/77
== END 2020-09-30 19:05 | disposition home or self-care (01) | DRG 617 ==
LOC: EDH 17:36 → EDHIP 18:20 → OBSVTOIN 18:20 → 3CH 09-26 20:37 → 3BH 09-29 18:17
PROVIDERS: ADMIT Internal Medicine Infectious Disease; ATTEND Internal Medicine Infectious Disease
PROC: 0Y6P0Z1 Detachment at Right 1st Toe, High, Open Approach (ICD-10-PCS; principal; 2020-09-27 15:28)
DX: E11.69 Type 2 diabetes mellitus with other specified complication (principal); M86.9 Osteomyelitis, unspecified; L02.611 Cutaneous abscess of right foot; L03.115 Cellulitis of right lower limb; M00.9 Pyogenic arthritis, unspecified; E11.52 Type 2 diabetes mellitus with diabetic peripheral angiopathy with gangrene; E11.51 Type 2 diabetes mellitus with diabetic peripheral angiopathy without gangrene; E11.621 Type 2 diabetes mellitus with foot ulcer; E66.01 Morbid (severe) obesity due to excess calories; E78.5 Hyperlipidemia, unspecified; N17.0 Acute kidney failure with tubular necrosis; Z95.5 Presence of coronary angioplasty implant and graft; Z89.429 Acquired absence of other toe(s), unspecified side; Z82.0 Family history of epilepsy and other diseases of the nervous system; Z81.8 Family history of other mental and behavioral disorders; Z82.49 Family history of ischemic heart disease and other diseases of the circulatory system; Z80.9 Family history of malignant neoplasm, unspecified; Z82.5 Family history of asthma and other chronic lower respiratory diseases; Z83.3 Family history of diabetes mellitus; I10 Essential (primary) hypertension; L97.519 Non-pressure chronic ulcer of other part of right foot with unspecified severity; Z68.33 Body mass index [BMI] 33.0-33.9, adult; Z20.822 Contact with and (suspected) exposure to COVID-19
CPT/HCPCS: 36415; 73630; 73718; 80048; 80069; 80202; 82948; 83036; 83605; 83735; 85025; 87040; 87070; 87076; 87205; 87426; 93926; G0378; J0360; J0692; J1650; J1815; J2250; J2543; J2704; J3370; J3490; J7040; J7050; U0003

== ENCOUNTER 2021-11-12 10:25 | Emergency (ER) | payer MEDICARE ==
[~2021-11-12] VITALS: Ht 175.3 cm; Wt 106.6 kg
[~2021-11-12 10:25] MED LIST changes: +INSU100I24 SQ; -OMEP40CA13 PO; +OMEP40CA21 PO
[2021-11-12 10:53] LABS: BASOPHILS % (AUTO) 0.4 % (0.0-5.0); EOSINOPHILS % (AUTO) 1.8 % (0.0-8.0); HEMATOCRIT 41.8 % (42-54); LYMPHOCYTES % (AUTO) 14.3 % (21.0-51.0); MEAN CORPUSCULAR HEMOGLOBIN 28.7 pg (27.0-33.0); MEAN CORPUSCULAR VOLUME 84.4 fL (79-99); MONOCYTES % (AUTO) 7.6 % (3.0-13.0); NEUTROPHILS % (AUTO) 75.4 % (40.0-77.0); PLATELET COUNT (AUTO) 178 K/uL (130-400); RED BLOOD CELL COUNT(AUTO) 4.95 MIL/uL (4.50-6.20); RED CELL DISTRIBUTION WIDTH 13.9 % (11.0-15.5); WHITE BLOOD COUNT (AUTO) 9.8 K/uL (4.8-10.8)
[2021-11-12 11:03] LABS: CREATININE 1.6 mg/dL (0.5-1.5); POTASSIUM 3.8 mmol/L (3.5-5.1)
[2021-11-12 11:41] VITALS: BP 125/60
== END 2021-11-12 11:43 | disposition home or self-care (01) ==
LOC: EDH 10:25
DX: R53.1 Weakness (principal); R42 Dizziness and giddiness; E11.9 Type 2 diabetes mellitus without complications; Z79.4 Long term (current) use of insulin; Z79.82 Long term (current) use of aspirin; Z79.899 Other long term (current) drug therapy
CPT/HCPCS: 36415; 80048; 84484; 85025; 93005